=== PATIENT | female | born 1960 | race Caucasian/White ===

== ENCOUNTER 2019-04-25 21:00 | Emergency (ER) | payer MEDICARE ==
[~2019-04-25] VITALS: Ht 170.2 cm; Wt 70.3 kg
[~2019-04-25 21:00] MED LIST: ASCO500T8 PO; CYAN250T6 PO; FOLI1TAB16 PO; HYDR12.55 PO; MULT-74 PO
--- NOTE | 2019-04-25 21:15 | NUR ---
PT BIB [facility] WITH A C/O GLF. ETOH NOTED. PT STATED THAT SHE WAS WALKING AND TRIPPED. PT HAS AN ABRASION ON HER NOSE. PT DENIES KO. PT STATED THAT SHE DOES NOT KNOW WHY SHE IS HERE. PT STATED: "I FEEL FINE". ASHLEE REYNOLDS IS AT THE BEDSIDE CLEANING THE WOUND.
--- NOTE | 2019-04-25 21:18 | NUR ---
PT PLACED IN A C- COLLAR, PER Roma ALCALA PA-C.
[2019-04-25 21:40] LABS: BASOPHILS % (AUTO) 0.7 % (0.0-2.0); EOSINOPHILS % (AUTO) 2.9 % (0.0-6.0); HEMATOCRIT 42 % (33-45); HEMOGLOBIN 13.8 g/dL (11.5-14.8); MEAN CORPUSCULAR HGB CONC 33 g/dl (31.0-36.0); MEAN CORPUSCULAR VOLUME 96 fL (82-100); MONOCYTES # (AUTO) 0.7 /CMM (0.1-1.30); MONOCYTES % (AUTO) 10.6 % (2.0-12.0); NEUTROPHILS # (AUTO) 3.6 /CMM (1.8-8.9); NEUTROPHILS % (AUTO) 54.8 % (43.0-81.0); PLATELET COUNT (AUTO) 233 /CMM (150-450); RED BLOOD CELL COUNT(AUTO) 4.32 MIL/uL (4.0-5.2); WHITE BLOOD COUNT (AUTO) 6.6 K/uL (4.3-11.0)
[2019-04-25 21:48] LABS: CALCIUM, SERUM 8.1 mg/dL (8.5-10.1); CREATININE 0.6 mg/dL (0.6-1.3); POTASSIUM 4.4 mmol/L (3.5-5.1)
[2019-04-25 21:54] LABS: BILIRUBIN,TOTAL 0.3 mg/dL (0.2-1.0); SALICYLATE 9.6 mg/dL (2.8-20.0); TOTAL PROTEIN, SERUM 6.1 g/dL (6.4-8.2)
--- NOTE | 2019-04-25 22:35 | NUR ---
PT AMBULATED TO THE BATHROOM WITH A STEADY GAIT. NO ATAXIA NOTED. PT WAS ASKED FOR A URINE SAMPLE BUT WAS NOT ABLE TO GIVE US ONE AT THIS TIME. WILL TRY AGAIN. Roma ALCALA PA-C NOTIFIED.
--- NOTE | 2019-04-25 23:15 | NUR ---
PT AMBULATED TO THE BATHROOM WITH A STEADY GAIT. URINE SAMPLE WAS OBTAINED AND SENT TO THE LAB.
--- NOTE | 2019-04-25 23:25 | NUR ---
CALLED YOSVANY AT [facility]. PT'S CT'S WILL BE PUT ON THE HOTLINE.
[2019-04-25 23:50] LABS: APPEARANCE,URINE Clear (CLEAR); BILIRUBIN,URINE Negative (NEGATIVE); BLOOD, URINE Trace-lysed Ery/uL (NEGATIVE); COLOR,URINE Yellow (YELLOW); KETONES,URINE Negative (NEGATIVE); LEUKOCYTE ESTERASE ,URINE Negative (NEGATIVE); NITRITE, URINE Negative (NEGATIVE); PH,URINE 5.5 (5.0-8.0); PROTEIN,URINE Negative (NEGATIVE); UGLUCOSE Negative (NEGATIVE); UROBILINOGEN,URINE 0.2 EU/dL (0.2)
[2019-04-26 00:08] LABS: BACTERIA,URINE Rare /HPF (None Seen); RBC,URINE 0-2 /HPF (0-2); SQUAMOUS EPITHELIAL CELL,UR Few /HPF (None Seen); WBC,URINE 0-2 /HPF (0-3)
--- NOTE | 2019-04-26 00:48 | NUR ---
PT APPEARS TO BE RESTING COMFORTABLY WITH NO S/S OF PAIN OR DISTRESS.
--- NOTE | 2019-04-26 02:00 | NUR ---
PT APPEARS TO BE SLEEPING SOUNDLY. PT IS EASILY AROUSED. VSS.
--- NOTE | 2019-04-26 02:42 | NUR ---
REPORT GIVEN TO FELIPA MEJIA FOR [facility]ANE.
[2019-04-26 06:21] VITALS: BP 134/77
== END 2019-04-26 06:22 | disposition home or self-care (01) ==
LOC: ER 21:01
DX: S01.21XA Laceration without foreign body of nose, initial encounter (principal); S09.8XXA Other specified injuries of head, initial encounter; F10.129 Alcohol abuse with intoxication, unspecified; F32.9 Major depressive disorder, single episode, unspecified; Z79.899 Other long term (current) drug therapy; W18.39XA Other fall on same level, initial encounter; Y93.89 Activity, other specified; Y92.89 Other specified places as the place of occurrence of the external cause; Y99.8 Other external cause status; Y90.8 Blood alcohol level of 240 mg/100 ml or more
CPT/HCPCS: 36415; 70450; 70486; 72125; 80048; 80076; 80305; 80307; 80329; 81001; 85025; 99284; G0480; L0172; 81000-TC